=== PATIENT | female | born 1965 | race Caucasian/White ===

== ENCOUNTER → 2020-05-17 13:40 | Outpatient (CLI) | payer OTHER, SELFPAY ==
--- NOTE | ~2020-05-17 | US_ITS ---
EXAMINATION: US pelvic complete w TV EXAM DATE: 05/17/2020 14:20 INDICATION: Abnormal uterine and vaginal bleeding, abdominal pain. TECHNIQUE: Pelvic transabdominal and transvaginal sonogram was performed. There are multiple graysca le and Doppler images available for interpretation. There is no prior study for comparison. FINDINGS: Uterus measures 7.4 x 4.1 x 5.7 cm, and is morphologically normal. Endometrial stripe shonda sures 4 mm, within normal limits. There is no free pelvic fluid. Right adnexa: The ovary is not identified. There is no adnexal mass. Left adnexa: The ovary measures 1.8 x 2.6 x 1.8 cm and is morphologically normal. Ovarian vascular fl ow confirmed. IMPRESSION: 1. Unremarkable pelvic ultrasound exam. Reviewed, dictated and finalized at location A. 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
== END ==
PROVIDERS: Visit Provider Obstetrics & Gynecology Gynecology
DX: N93.9 Abnormal uterine and vaginal bleeding, unspecified (principal); R10.9 Unspecified abdominal pain
CPT/HCPCS: 76830; 76856

== ENCOUNTER → 2020-05-23 15:41 | Outpatient (CLI) | payer OTHER, SELFPAY ==
--- NOTE | ~2020-05-23 | MM_ITS ---
EXAMINATION: MM screening [facility] w liliana HISTORY: Screening TECHNIQUE: Craniocaudal and mediolateral oblique 3-D tomosynthesis images were obtained and synthetic 2-D images were generated. CAD analysis was submitted and interpreted. COMPARISON: Comparison to multiple prior studies sequentially, with oldest reviewed study dated 10/08. BREAST PARENCHYMAL COMPOSITION: There are scattered areas of fibroglandular density. FINDINGS: There is no evidence of suspicious mass, calcification, or architectural distortion to sugg est malignancy in either breast. There has been no suspicious interval change. IMPRESSION: 1. No mammographic evidence of malignancy. 2. Recommend routine screening mammography in one year. BI-RADS Category 1: Negative Reviewed, dictated and finalized at location A. 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
== END ==
PROVIDERS: Visit Provider Obstetrics & Gynecology
DX: Z12.31 Encounter for screening mammogram for malignant neoplasm of breast (principal)
CPT/HCPCS: 77063; 77067

== ENCOUNTER → 2020-07-22 17:26 | Outpatient (CLI) | payer OTHER, SELFPAY ==
--- NOTE | ~2020-07-22 | DEXA_ITS ---
Bone Density Report Name: Aislinn Miles Age: 55 Sex: Female Ethnicity: White Date of : 1965 Indication: postmenopausal; screening for osteoporosis; Referring Provider: Bre Mitchell Study: Bone densitometry was performed. Exam Date: July 22, 2020 Accession number: [id number] Bone Density: Region BMD T-score Z-score Classification AP Spine (L1-L4) 1.114 0.6 1.8 Normal Femoral Neck (Left) 0.839 -0.1 1.0 Normal Total Hip (Left) 1.087 1.2 1.9 Normal Femoral Neck (Right) 0.751 -0.9 0.2 Normal Total Hip (Right) 1.062 1.0 1.7 Normal Total Hip Mean 1.075 1.1 1.8 Normal World Health Organization criteria for BMD impression classify patients as: Normal (T-score at or above -1.0), Osteopenia (T-score between -1.0 and -2.5), or Osteoporosis (T-score at or below -2.5). 10-year Fracture Risk: FRAX not reported because: All T-scores for Spine Total, Hip Total, Femoral Neck at or above -1.0 Clinical Information Provided by Patient: Has used the following medications: HRT (i.e. estrogen/hormone therapy), Vitamin D Patient maximum height was 64.0 Menopause Age: 52 No regular weight bearing exercise Drinks caffeinated beverages Onset of menses at age 11 Number of children 2 Impression: The patient has normal bone mass. Discussion: BONE DENSITY IS ABOVE THE MINIMUM DESIRABLE LEVEL AT ALL SKELETAL SITES TESTED. This patient?s bone mineral density is above the minimum desirable level (T-score -1.0 or better) at all sites measured. The patient should follow a healthful lifestyle (good nutrition with adequate calcium and vitamin D, and appropriate weight-bearing exercise). Follow-Up: Consider repeating this study in 5 years or sooner if there is some new clinical indication. Reported by: [facility] on 07/22/2020 6:06:00 PM. Reviewed, dictated and finalized at location AErnesto [facility]
== END ==
PROVIDERS: PCP Obstetrics & Gynecology Gynecology; Visit Provider Nurse Practitioner Family
DX: Z78.0 Asymptomatic menopausal state (principal)
CPT/HCPCS: 77080

== ENCOUNTER → 2020-09-09 00:12 | Outpatient (CLI) | payer OTHER, SELFPAY ==
[2020-09-09 19:36] LABS: SARS-CoV-2 RNA PCR Negative
== END ==
PROVIDERS: PCP Family Medicine; Visit Provider Internal Medicine Gastroenterology
DX: R68.89 Other general symptoms and signs (principal); Z20.822 Contact with and (suspected) exposure to COVID-19
CPT/HCPCS: C9803; U0003; U0005

== ENCOUNTER 2020-09-12 01:25 | Day surgery (SDC) | payer OTHER, SELFPAY ==
[2020-09-06 10:49] VITALS: BMI 45.3
[2020-09-12 06:29] VITALS: BP 163/84; PULSE 81; RESP 16; TEMP 36.1; O2SAT 99; BMI 44.9
[2020-09-12] MEDS: LACTATED RINGERS 1,000 ML 150 ML IV CONT ×2 (06:40→08:09)
[2020-09-12 06:42] LABS: Glucose Point of Care 194 (65-105)
--- NOTE | 2020-09-12 07:11 | WPDANESEPP ---
Anes - Eval Pre Procedure Procedure: Operation Date: 09/12/20 07:30 Proposed Procedures p Colonoscopy - Damian Danielle MD Date/Time: 09/12/20 07:11 Pre Op Diagnosis: positive cologuard Patient Data Age: 55 Gender: F Height: 1.63 m Weight: 118.6 kg Last Vital Signs Temp 36.1 C L 09/12/20 06:29 Pulse 81 09/12/20 06:29 Resp 16 09/12/20 06:29 BP 163/84 H 09/12/20 06:29 Pulse Ox 99 09/12/20 06:29 Allergies Allergy/AdvReac Type Severity Reaction Status Date / Time Sulfa (Sulfonamide Allergy Unknown Other Verified 09/12/20 06:25 Antibiotics) Home Medications Medication Instructions Recorded Confirmed Type blood-glucose meter #1 each 03/02/19 09/12/20 Rx fluticasone propionate 50 1 spray NASAL DAILY #36.4 ml 03/02/19 09/12/20 Rx mcg/actuation nasal spray,suspension lancets 30 gauge #25 each 03/02/19 09/12/20 Rx blood sugar diagnostic #100 each 12/18/19 09/12/20 Rx prasterone (dhea) 6.5 mg vaginal 1 insert VAGINAL DAILY #90 ea 02/05/20 09/12/20 Rx insert allopurinol 300 mg tablet 300 mg PO DAILY #90 tablet 05/26/20 09/12/20 Rx apple cider vinegar 300 mg tablet 300 mg PO DAILY PRN 05/26/20 09/12/20 History venlafaxine 75 mg tablet,extended 75 mg PO DAILY #90 tablet 05/26/20 09/12/20 Rx release 24 hr pioglitazone 45 mg tablet See Rx Instructions .ROUTE 05/30/20 09/12/20 Rx .COMPLEX #90 tablet atorvastatin 40 mg tablet See Rx Instructions .ROUTE 06/13/20 09/12/20 Rx .COMPLEX #90 tablet metformin 500 mg tablet 1,000 mg PO BID #360 tablet 06/13/20 09/12/20 Rx olmesartan 40 mg tablet See Rx Instructions .ROUTE 06/13/20 09/12/20 Rx .COMPLEX #90 tablet repaglinide 1 mg tablet See Rx Instructions .ROUTE 06/13/20 09/12/20 Rx .COMPLEX #270 tablet sod picosulf 10 mg-magnes 3.5 160 ml PO BID #160 ml 07/19/20 09/12/20 Rx gram-citric 12 gram/160 mL oral solution ketorolac 10 mg tablet 10 mg PO Q6H PRN #30 tablet 08/08/20 09/12/20 Rx Juice Plus 2 cap PO DAILY 09/06/20 09/12/20 History amlodipine 10 mg PO DAILY 09/06/20 09/12/20 History cholecalciferol (vitamin D3) 125 mcg PO DAILY 09/06/20 09/12/20 History coenzyme Q10 [Co Q-10] 200 mg PO DAILY 09/06/20 09/12/20 History estradiol 1.25 mg PO DAILY 09/06/20 09/12/20 History melatonin 3 mg PO HS PRN 09/06/20 09/12/20 History progesterone micronized 300 mg PO HS 09/06/20 09/12/20 History tamsulosin [Flomax] 0.4 mg PO DAILY PRN 09/06/20 09/12/20 History testosterone 1 pump TOPICAL HS 09/06/20 09/12/20 History testosterone undecanoate 40 mg PO HS 09/06/20 09/12/20 History thyroid 1 mg PO DAILY 09/06/20 09/12/20 History valacyclovir [Valtrex] 500 mg PO Q12H PRN 09/06/20 09/12/20 History Laboratory Tests 09/12/20 06:34 POC Capillary Glucose 194 mg/dl H mg/dl (65-105) Patient hx anesthesia problems: none Family hx anesthesia problems: none PMFSH Past Medical History Medical History Benign breast neoplasm 1984 Essential (primary) hypertension Hyperlipidemia, unspecified Hypothyroidism, unspecified Post depression 1996 Type 2 diabetes mellitus without complication Vaginal delivery 1996 Full term female 6lbs 14oz 2001 Full term male 7lbs 2oz Family History Family History Grandparent Family history of emphysema Family history of rheumatic fever Diabetes mellitus Mother Hypertension Family history of coronary artery disease Cerebrovascular accident Father Family history of coronary artery disease Cerebrovascular accident Hyperlipidemia Other Breast cancer Social History Social History Smoking status: Never smoker Alcohol intake: former Substance use: never Living arrangements: with family Spiritual care concerns: No Exam Day of Procedure 09/12/20 07:11
--- NOTE | 2020-09-12 07:26 | PM.HPGS ---
History of Present Illness History of Present Illness Consent: Risks, benefits, and alternatives have been discussed and questions answered. Patient agrees to proceed with procedure. Chief complaint: positive cologuard Narrative: Aislinn Miles is a 55 year old female here for first colonoscopy, has + cologuard Review of Systems Constitutional: Constitutional: Denies headache(s) and Denies weakness Eyes: Eyes: Denies blurry vision ENT: Reports Normal hearing present, Denies headache(s) and Denies neck pain Cardiovascular: Cardiovascular: Denies chest pain and Denies dyspnea Respiratory: Respiratory: Denies dyspnea Gastrointestinal: Gastrointestinal: Reports no additional gastrointestinal complaints Genitourinary: Genitourinary: Denies dysuria Musculoskeletal: Musculoskeletal: Denies neck pain Integumentary/Breasts: Skin/Breast: Denies dry skin Neurologic: Reports Normal hearing present, Denies headache(s) and Denies weakness Psychiatric: Psychiatric: Denies anxiety Endocrine: Endocrine: Denies change in body appearance Hematologic/Lymphatic: Hematologic/Lymphatic: Denies easy bleeding Allergic/Immunologic: Allergic/Immunologic: Denies urticaria PMFSH Past Medical History Medical History Benign breast neoplasm 1984 Essential (primary) hypertension Hyperlipidemia, unspecified Hypothyroidism, unspecified Post depression 1996 Type 2 diabetes mellitus without complication Vaginal delivery 1996 Full term female 6lbs 14oz 2001 Full term male 7lbs 2oz Family History Family History Grandparent Family history of emphysema Family history of rheumatic fever Diabetes mellitus Mother Hypertension Family history of coronary artery disease Cerebrovascular accident Father Family history of coronary artery disease Cerebrovascular accident Hyperlipidemia Other Breast cancer Social History Social History Smoking status: Never smoker Alcohol intake: former Substance use: never Living arrangements: with family Spiritual care concerns: No Meds Home Medications and Allergies Home Medications Medication Instructions Recorded Confirmed Type blood-glucose meter #1 each 03/02/19 09/12/20 Rx fluticasone propionate 50 1 spray NASAL DAILY #36.4 ml 03/02/19 09/12/20 Rx mcg/actuation nasal spray,suspension lancets 30 gauge #25 each 03/02/19 09/12/20 Rx blood sugar diagnostic #100 each 12/18/19 09/12/20 Rx prasterone (dhea) 6.5 mg vaginal 1 insert VAGINAL DAILY #90 ea 02/05/20 09/12/20 Rx insert allopurinol 300 mg tablet 300 mg PO DAILY #90 tablet 05/26/20 09/12/20 Rx apple cider vinegar 300 mg tablet 300 mg PO DAILY PRN 05/26/20 09/12/20 History venlafaxine 75 mg tablet,extended 75 mg PO DAILY #90 tablet 05/26/20 09/12/20 Rx release 24 hr pioglitazone 45 mg tablet See Rx Instructions .ROUTE 05/30/20 09/12/20 Rx .COMPLEX #90 tablet atorvastatin 40 mg tablet See Rx Instructions .ROUTE 06/13/20 09/12/20 Rx .COMPLEX #90 tablet metformin 500 mg tablet 1,000 mg PO BID #360 tablet 06/13/20 09/12/20 Rx olmesartan 40 mg tablet See Rx Instructions .ROUTE 06/13/20 09/12/20 Rx .COMPLEX #90 tablet repaglinide 1 mg tablet See Rx Instructions .ROUTE 06/13/20 09/12/20 Rx .COMPLEX #270 tablet sod picosulf 10 mg-magnes 3.5 160 ml PO BID #160 ml 07/19/20 09/12/20 Rx gram-citric 12 gram/160 mL oral solution ketorolac 10 mg tablet 10 mg PO Q6H PRN #30 tablet 08/08/20 09/12/20 Rx Juice Plus 2 cap PO DAILY 09/06/20 09/12/20 History amlodipine 10 mg PO DAILY 09/06/20 09/12/20 History cholecalciferol (vitamin D3) 125 mcg PO DAILY 09/06/20 09/12/20 History coenzyme Q10 [Co Q-10] 200 mg PO DAILY 09/06/20 09/12/20 History estradiol 1.25 mg PO DAILY 09/06/20 09/12/20 History melatonin 3 mg PO HS PRN 09/06/2008/27
[2020-09-12 07:58] VITALS: BP 156/72; PULSE 76; RESP 31; O2SAT 98
[2020-09-12 08:08] VITALS: BP 97/74; PULSE 75; RESP 26; O2SAT 98
[2020-09-12 08:18] VITALS: BP 125/74; PULSE 67; RESP 18; O2SAT 95
== END 2020-09-12 08:32 | disposition home or self-care (01) ==
PROVIDERS: PCP Nurse Practitioner Family; Visit Provider Internal Medicine Gastroenterology
PROC: 0DJD8ZZ Inspection of Lower Intestinal Tract, Via Natural or Artificial Opening Endoscopic (ICD-10-PCS; CPT 45378; principal; 2020-09-12 07:30)
DX: R19.5 Other fecal abnormalities (principal); D12.8 Benign neoplasm of rectum; D12.0 Benign neoplasm of cecum; I10 Essential (primary) hypertension; E78.5 Hyperlipidemia, unspecified; E03.9 Hypothyroidism, unspecified; E11.9 Type 2 diabetes mellitus without complications; K64.4 Residual hemorrhoidal skin tags
CPT/HCPCS: 45385; 45380; 82948; 88305; J2704; J7120

== ENCOUNTER 2021-05-02 10:32 | Emergency (ER) | payer OTHER, SELFPAY ==
[2021-05-02 10:37] VITALS: BP 144/72; PULSE 101; RESP 16; TEMP 36.8; O2SAT 97
--- NOTE | 2021-05-02 10:53 | ED.URI ---
HPI - URI/Sore Throat General Chief Complaint: Upper Respiratory Infection Stated Complaint: cough Time Seen by Provider: 05/02/21 11:28 Source: patient and RN notes reviewed Mode of arrival: ambulatory Limitations: no limitations History of Present Illness HPI Narrative: 55-year-old female presents with concern for 2-day history of fever, chills, body aches, decreased appetite, cough, sinus drainage. She reports she was vaccinated for Covid last June. She reports she has been taking [id number] medications without relief of symptoms. MD elicited complaint: cough and other (Body aches) Related Data Home Medications Medication Instructions Recorded Confirmed apple cider vinegar 300 mg tablet 300 mg PO DAILY PRN 05/26/20 02/10/21 Juice Plus 2 cap PO DAILY 09/06/20 02/10/21 cholecalciferol (vitamin D3) 125 mcg PO DAILY 09/06/20 02/10/21 coenzyme Q10 [Co Q-10] 200 mg PO DAILY 09/06/20 02/10/21 estradiol 1.25 mg PO DAILY 09/06/20 02/10/21 testosterone 1 pump TOPICAL HS 09/06/20 02/10/21 melatonin 3 mg capsule 2 mg PO HS PRN cap 01/26/21 02/10/21 progesterone micronized 200 mg 400 mg PO HS cap 01/26/21 02/10/21 capsule olmesartan 40 mg tablet 40 mg PO DAILY 02/10/21 02/10/21 prasterone (dhea) 25 mg capsule 5 mg PO DAILY cap 02/10/21 02/10/21 thyroid PO 02/10/21 02/10/21 Allergies Allergy/AdvReac Type Severity Reaction Status Date / Time Sulfa (Sulfonamide Allergy Unknown Other Verified 02/10/21 10:00 Antibiotics) Review of Systems Review of Systems: CONSTITUTIONAL: Reports malaise, fatigue, fever. Denies chills, sweats EYES: Denies visual changes, redness, or discharge. ENT: Reports rhinorrhea, congestion, otalgia and sore throat. CARDIOVASCULAR: Denies chest pain, palpitations, or edema. RESPIRATORY: Reports cough. Denies dyspnea. GASTROINTESTINAL: Denies abdominal pain, nausea, vomiting, diarrhea. Reports decreased appetite SKIN: Denies rash or itching. MUSCULOSKELETAL: Reports myalgia. NEUROLOGIC: Reports headache. All systems reviewed & are unremarkable except as noted in HPI and below PMFSH Past Medical History Medical History (Updated 05/02/21 @ 11:58 by Norah Muñiz NP) Benign breast neoplasm 1984 Essential (primary) hypertension Hyperlipidemia, unspecified Hypothyroidism, unspecified Post depression 1996 Type 2 diabetes mellitus without complication Vaginal delivery x2 Surgical History Surgical History History of breast surgery left breast lump removal History of oral surgery Family History Family History Grandparent Family history of emphysema Family history of rheumatic fever Diabetes mellitus Mother Hypertension Family history of coronary artery disease Cerebrovascular accident Father Family history of coronary artery disease Cerebrovascular accident Hyperlipidemia Other Breast cancer Social History Social History Smoking status: Never smoker Alcohol intake: current Alcohol use details: rare Substance use: never Spiritual care concerns: No Comments At time of signature, agree with nursing past medical, surgical, social and family history. There is no relevant family history pertinent to the presenting complaint Exam Narrative: GENERAL: Nontoxic-appearing, well-nourished, and in no acute distress. HEAD: Normocephalic EYES: PERRLA, conjunctivae clear ENT: Nares clear, green-tinged discharge. Mucous membranes moist. TM pearly ugarte with dull light reflex bilaterally; no tragal tenderness. Oropharynx not erythematous without lesions. Tonsils not enlarged and without exudate, no drooling, no hoarseness, no trismus, uvula midline. NECK: Supple. No lymphadenopathy CHEST: Clear to auscultation, breath sounds equal. No wheezing, rhonchi, rales, or stridor.
== END 2021-05-02 12:03 | disposition home or self-care (01) ==
PROVIDERS: Emergency Provider Nurse Practitioner
DX: B34.9 Viral infection, unspecified (principal); Z20.822 Contact with and (suspected) exposure to COVID-19; I10 Essential (primary) hypertension; E78.5 Hyperlipidemia, unspecified; E03.9 Hypothyroidism, unspecified; E11.9 Type 2 diabetes mellitus without complications
CPT/HCPCS: 87426; 87804; 99213; C9803; G0463

== ENCOUNTER 2021-06-04 14:31 | Emergency (ER) | payer OTHER, SELFPAY ==
[2021-06-04 14:38] VITALS: BP 142/56; PULSE 108; RESP 22; TEMP 36.4; O2SAT 100
--- NOTE | 2021-06-04 15:54 | PC.NURSE ---
PT STATES I JUST CAN'T WAIT ANY LONGER SO PLEASE CALL MY TO COME PICK ME UP I ADVISED HER THAT WE HAVE A COUPLE OF ROOMS OPENING UP D/T ADMISSIONS AND DISCHARGES BUT SHE DECLINED TO WAIT ANY LONGER. PT AMBULATED WITH A BRISK, STEADY GAIT FROM THE ED,
== END 2021-06-04 15:54 | disposition left against medical advice (07) ==
DX: R10.9 Unspecified abdominal pain (principal)
CPT/HCPCS: 99199

== ENCOUNTER → 2021-08-31 11:22 | Outpatient (CLI) | payer OTHER, SELFPAY ==
--- NOTE | ~2021-08-31 | MM_ITS ---
EXAMINATION: MM screening [facility] BI w liliana HISTORY: Screening mammogram TECHNIQUE: Craniocaudal and mediolateral oblique 3-D tomosynthesis images were obtained and synthetic 2-D images were generated. CAD analysis was submitted and interpreted. COMPARISON: 05/23/2020, 03/16/2019, 12/09/2017 bilateral screening mammogram examinations BREAST PARENCHYMAL COMPOSITION: There are scattered areas of fibroglandular density. FINDINGS: Occasional stable benign-appearing circumscribed opacities including probable benign intram ammary lymph node in the outer mid right breast, stable circumscribed low-density benign-appearing ap proximately 6 mm density in the central right breast lateral to the mid sagittal plane. There is no e vidence of suspicious mass, calcification, or architectural distortion to suggest malignancy in eithe r breast. There has been no suspicious interval change. IMPRESSION: 1. No mammographic evidence of malignancy. 2. Recommend routine screening mammography in one year. BI-RADS Category 2: Benign finding(s). Reviewed, dictated and finalized at location A.
== END ==
PROVIDERS: PCP Nurse Practitioner Family; Visit Provider Nurse Practitioner Family
DX: Z12.31 Encounter for screening mammogram for malignant neoplasm of breast (principal)
CPT/HCPCS: 77063; 77067

== ENCOUNTER → 2022-09-01 10:46 | Outpatient (CLI) | payer OTHER, SELFPAY ==
--- NOTE | ~2022-09-01 | MM_ITS ---
EXAMINATION: MM screening [facility] BI w liliana HISTORY: Screening mammogram TECHNIQUE: Craniocaudal and mediolateral oblique 3-D tomosynthesis images were obtained and synthetic 2-D images were generated. CAD analysis was submitted and interpreted. COMPARISON: 08/31/2021, 05/23/2020, 03/16/2019 BREAST PARENCHYMAL COMPOSITION: There are scattered areas of fibroglandular density. FINDINGS: No suspicious mass, calcification, or architectural distortion are identified in either ramy ast to suggest malignancy. There has been no suspicious interval change. IMPRESSION: 1. No mammographic evidence of malignancy. 2. Recommend routine screening mammography in one year. BI-RADS Category 1: Negative Reviewed, dictated and finalized at location A.
== END ==
PROVIDERS: PCP Obstetrics & Gynecology Gynecology; Visit Provider Nurse Practitioner Family
DX: Z12.31 Encounter for screening mammogram for malignant neoplasm of breast (principal)
CPT/HCPCS: 77063; 77067

== ENCOUNTER 2023-10-21 14:57 | Outpatient (CLI) | payer OTHER, SELFPAY ==
--- NOTE | ~2023-10-21 | MM_ITS ---
EXAMINATION: MM screening [facility] BI w liliana HISTORY: Screening mammogram TECHNIQUE: Craniocaudal and mediolateral oblique 3-D tomosynthesis images were obtained and synthetic 2-D images were generated. CAD analysis was submitted and interpreted. COMPARISON: 09/01/2022, 08/31/2021, 05/23/2020 BREAST PARENCHYMAL COMPOSITION:Not Dense. There are scattered areas of fibroglandular density. FINDINGS: No suspicious mass, calcification, or architectural distortion are identified in either ramy ast to suggest malignancy. There has been no suspicious interval change. IMPRESSION: No mammographic evidence of malignancy. Recommend routine screening mammography in one year. BI-RADS Category 1: Negative Reviewed, dictated and finalized at location .
== END 2023-10-21 14:58 ==
LOC: MICIMG 14:59
PROVIDERS: PCP Family Medicine; Visit Provider Obstetrics & Gynecology Gynecology
DX: Z12.31 Encounter for screening mammogram for malignant neoplasm of breast (principal)
CPT/HCPCS: 77063; 77067

== ENCOUNTER 2023-11-29 13:39 | Emergency (ER) | payer OTHER, SELFPAY ==
--- NOTE | ~2023-11-29 | XR_ITS ---
EXAMINATION: XR chest 2V DATE: 11/29/2023 14:44 INDICATION: Cough. Shortness of breath. TECHNIQUE: Frontal and lateral views of the chest were obtained. COMPARISON: None. FINDINGS: There is no pneumonia, pleural effusion, or pneumothorax. The heart size is normal. IMPRESSION: 1. No acute cardiopulmonary disease. Reviewed, dictated and finalized at location A.
--- NOTE | 2023-11-29 14:13 | ED.URI ---
HPI - URI/Sore Throat General Chief Complaint: Upper Respiratory Infection Stated Complaint: CHEST PAIN/CONGESTION/CLAMMY S/P COVID Time Seen by Provider: 11/29/23 14:35 Source: patient Mode of arrival: ambulatory Limitations: no limitations History of Present Illness HPI Narrative: Aislinn is a 58-year-old female presents to clinic today with complaints of chest pain with cough, shortness of breath, headache, and nasal congestion x 1-2 days. She tested positive for COVID last Saturday and her symptoms improved but came back. She denies any fevers, wheezing, nausea, vomiting, abdominal pain, or diarrhea. MD elicited complaint: sore throat and nasal congestion Related Data Home Medications Medication Instructions Recorded Confirmed testosterone 30 mg/actuation (1.5 1 pump topical HS 09/06/20 11/29/23 mL) transderm solution metered pump melatonin 3 mg capsule 2 mg PO HS PRN Insomnia 01/26/21 11/29/23 estradiol 1.5 mg tablet 2.4 mg PO DAILY 06/22/21 11/29/23 progesterone micronized 200 mg 500 mg PO HS 06/22/21 11/29/23 capsule cholecalciferol (vitamin D3) 125 250 mcg PO DAILY 06/18/23 11/29/23 mcg (5,000 unit) capsule thyroid 195 mg PO DAILY 06/18/23 11/29/23 Allergies Allergy/AdvReac Type Severity Reaction Status Date / Time Sulfa (Sulfonamide Allergy Unknown Other Verified 11/29/23 14:24 Antibiotics) Review of Systems Review of Systems: Pertinent positives per HPI. Patient denies any fever, chills, rash, visual changes, dizziness, palpitations, nausea, vomiting, diarrhea, constipation, abdominal pain, or any urinary issues. [facility] Past Medical History Medical History Anxiety and depression Benign breast neoplasm 1984 Essential (primary) hypertension GERD (gastroesophageal reflux disease) History of renal calculi Hyperlipidemia, unspecified Hypothyroidism, unspecified Kidney stones Post depression 1996 Type 2 diabetes mellitus without complication Vaginal delivery x2 Surgical History Surgical History History of breast surgery (~1984) left breast lump removal History of cystoscopy (~2020) for renal stones History of tooth extraction (~2021) History of wisdom tooth extraction Family History Family History Grandparent Family history of emphysema Family history of rheumatic fever Diabetes mellitus Mother Hypertension Family history of coronary artery disease Cerebrovascular accident Father Family history of coronary artery disease Cerebrovascular accident Hyperlipidemia Other Breast cancer Social History Social History Smoking status: Never smoker Alcohol intake: current Alcohol use details: rare Substance use: never Lack of Transportation: No Lack of Food: Never True Current Housing: I Have Housing Concerned About Future Housing: No Difficulty Paying Gas/Electric Bills: No Difficulty Paying for Meds: No Currently Unemployed: No Education: Associate Degree Difficulty w/ Childcare or Family Care: No Living arrangements: with family Spiritual care concerns: No Comments At the time of my signature, I reviewed and agree with the nursing past medical, surgical, social, and family history. There is no relevant family history pertinent to the patient complaint. Exam Narrative: General: Well-developed, well nourished, in no apparent distress Head: Normocephalic, atraumatic Eyes: Pupils equally round and reactive to light bilaterally, EOM intact, sclera and conjunctive clear, no discharge, lids normal Ears: TMs intact and clear, ear canals clear, no drainage, grossly hearing normal. Nose: Nares patent, no discharge, no inflammation, no sinus tenderness. Mouth: Oral pharynx without lesions or
[2023-11-29 14:23] VITALS: BP 138/94; PULSE 87; RESP 16; TEMP 36.6; O2SAT 100
[2023-11-29 14:29] VITALS: BP 138/94; PULSE 87; RESP 16; TEMP 36.6; O2SAT 100
== END 2023-11-29 15:11 | disposition home or self-care (01) ==
PROVIDERS: Emergency Provider Nurse Practitioner Family; PCP Family Medicine
DX: J06.9 Acute upper respiratory infection, unspecified (principal); I10 Essential (primary) hypertension; K21.9 Gastro-esophageal reflux disease without esophagitis; E78.5 Hyperlipidemia, unspecified; E03.9 Hypothyroidism, unspecified; E11.9 Type 2 diabetes mellitus without complications; Z86.16 Personal history of COVID-19
CPT/HCPCS: 71046; 99213; G0463

== ENCOUNTER 2024-07-20 06:06 | Day surgery (SDC) | payer OTHER, SELFPAY ==
[2024-01-17 13:29] VITALS: BMI 37.6
[2024-03-16 11:16] VITALS: BMI 36.7
--- OUTSIDE RECORDS SUMMARY | 2024-07-20 06:19 | XMS_ITS | Clinical Summary ---
Author Organization [facility] Address [address] [place] [place] [address] Care Team Providers Care Supervisor Sewer System Name Role Phone Monse Mitchellh Clarissa BERTRAND-SENIOR ELECTRICAL CONTROLS ENGINEER Primary Care Provider Source Comments [facility],non-owned Affiliates and Associated Physician Practices is amultiple site organization consisting of ambulatory clinics and hospital sitesin [place], [place], [place] and [place]. This disclosure is being madepursuant to the Care Everywhere program and may not contain all information available regarding this patient. Last updated 18.[facility] Allergies Active Allergy Reactions Criticality Noted Date Comments Sulfa Drugs Anaphylaxis,Rash High 03/19/2019 Medications * Be aware that medications may not be up to date on this document. Alwaysverify current medications with the patient. Medication Sig Dispensed Refills Start Date End Date Status METFORMIN HCL PO Active atorvastatin (LIPITOR) 40 MG tablet Take 40 mg by mouth at bedtime Active AMLODIPINE BESYLATE PO Active OLMESARTAN MEDOXOMIL PO Active PIOGLITAZONE HCL PO Activ e Spacer/Aero-Holding Chambers (AEROCHAMBER) Inhale by mouth as directed 1 Each 03/19/2019 Active albuterol HFA (PROVENTIL;VENTOLIN; PROAIR) 108 (90 Base) MCG/ACT inhaler Inhale 2 puffs by mouth every 6 hours as needed 1 Inhaler 03/19/2019 Active benzonatate (TESSALON) 200 MG capsule Take 1 capsule by mouth 3 times daily as needed for Cough 30 capsule 03/19/2019 Active Social History Tobacco Use Types Packs/Day Years Used Date Smoking Tobacco: Passive Smo ke Exposure - Never Smoker Smokeless Tobacco: Never Sex and Gender Information Value Date Recorded Sex Assigned at Not on file Gender Identity Not on file Sexual Orientation Not on file Last Filed Vital Signs Vital Sign Reading Time Taken Comments Blood Pressure 104/66 03/19/2019 10:57 AM INSURANCE AGENCY MANAGER Pulse 91 03/19/2019 10:57 AM INSURANCE AGENCY MANAGER Temperature 36.7 C (98.1 F) 03/19/2019 10:57 AM INSURANCE AGENCY MANAGER Respiratory Rate 16 03/19/2019 10:57 AM INSURANCE AGENCY MANAGER Oxygen Saturation 96% 03/19/2019 10:57 AM INSURANCE AGENCY MANAGER Inhaled Oxygen Concentration - - Weight 113.4 kg (250 lb) 03/19/2019 10:57 AM INSURANCE AGENCY MANAGER Height 162.6 cm (5' 4 ) 03/19/2019 10:57 AM INSURANCE AGENCY MANAGER Body Mass Index 42.91 03/19/2019 10:57 AM INSURANCE AGENCY MANAGER Plan of Treatment Health Maintenance Due Date Last Done Comments COLOGUARD (AGES 45-75) - COL ON CA SCREENING 1964 COLON MONITORING 1964 COLONOSCOPY - COLON CA SCREENING 1964 CT COLONOGRAPHY - COLON CA SCREENING 1964 Colorectal Cancer Screening 1964 FIT - COLON CA SCREENING 1964 FLEX SIG - COLON CA SCREENING 1964 MAMMOGRAM 1964 PAP SMEAR 1964 HIV SCREENING 1979 HEPATITIS C SCREENING 05/03/1982 DTAP/TDAP/TD VACCINES (1 - Tdap) 1983 PNEUMOCOCCAL VACCINE 50+ (1 of 1 - PCV) 2014 ZOSTER VACCINE (1 of 2) 2014 SCREENING FOR DIABETES 03/19/2019 COVID-19 VACCINE ( - 2023-2 5 season) 2023 INFLUENZA VACCINE (#1) 2023 DEPRESSION SCREENING 04/29/2024 Respiratory Syncytial Virus (RSV) Vaccine Pt: or over 60 yrs (1 - 1-dose 75+ series) 2039 HEPATITIS B VACCINE Aged Out No longe r eligible based on patient's age to complete this topic HIB VACCINE Aged Out No longer eligi ble based on patient's age to complete this topic HPV VACCINE Aged Out No longer eligi ble based on patient's age to complete this topic MENINGOCOCCAL (Group B) VACC INE SHARED DECISION-MAKING Aged Out No longer eligibl e based on patient's age to complete this topic MENINGOCOCCAL GROUPS A/C/Y/W VACCINE Aged Out No longer eligible b ased on patient's age to complete this topic PNEUMOCOCCAL VACCINE Aged Out No long er eligible based on patient's age to complete this topic Care Teams Supervisor Sewer System Relationship Specialty Start Date End Date Bre Mitchell, FLIGHT CONTROL SPECIALIST-SENIOR ELECTRICAL CONTROLS ENGINEER [address] [place] [address] PCP - General 11/14/20
--- OUTSIDE RECORDS SUMMARY | 2024-07-20 06:19 | XMS_ITS | Referral Summary ---
Author Organization [facility] Virtual Care Address [facility] [place] [address] Phone Care Team Providers Care Pharmacist Hospital Name Role Phone Bre Mitchell NP Primary Care Provider [phone] Juan Morales MD Unavailable [phone] Allergies Active Allergy Reactions Criticality Noted Date Comments Sulfa (Sulfonamide Antibiotics) Anaphylaxis High 10/2021 Medications atorvastatin (LIPITOR) 40 mg tablet Take 1 tablet (40 mg total) by mouth nightly Active venlafaxine (EFFEXOR) 75 mg tablet Take 75 mg by mouth nightly Active melatonin tablet Take 2 tablets (2 mg total) by mouth nightly Active estradioL (ESTRACE) 2 mg tablet Take 2.4 mg by mouth daily Lactose Free. Active pioglitazone (ACTOS) 15 mg tabletIndicatio ns:type 2 diabetes mellitus Take 3 tablets (45 mg total) by mouth daily Active amLODIPine (NORVASC) 10 mg tablet Take 1 tablet (10 mg total) by mouth daily Active olmesartan (BENICAR) 40 mg tablet Take 1 tablet (40 mg total) by mouth daily Active THYROID, BULK, MISC Take 1 each by mouth daily Thyroid by [facility] and the dose is 3.25 grain Active metFORMIN (GLUCOPHAGE) 500 mg tablet Take 2 tablets (1,000 mg total) by mouth 2 (two) times a day with meals Active cetirizine (ZyrTEC) 10 mg tablet Take 10 mg by mouth daily as needed Active fluticasone propionate (FLONASE) 50 mcg/actuation nasal spray Administer 1 spray into each nostril daily as needed for rhinitis Active cholecalciferol (VITAMIN D-3) 5,000 unit capsule Take 1 capsule (5,000 Units total) by mouth daily Active progesterone (PROMETRIUM) 200 mg capsule Take 500 mg by mouth daily Takes a 200mg tab and a 300mg tab Active ketorolac (TORADOL) 10 mg tablet Take 1 tablet (10 mg total) by mouth every 6 (six) hours as needed for pain 20 tablet 2 Active Additional Information Patient not taking.Reported on 04/18/2022 phenazopyridine (Pyridium) 100 mg tablet Take 1 tablet (100 mg total) by mouth 3 (three) times a day as needed for urinary pain 20 tablet 2 Active Additional Information Patient not taking.Reported on 12/05/2022 fenofibrate (TRIGLIDE) 160 mg tablet Take 1 tablet (160 mg total) by mouth daily 3 Active Mounjaro 2.5 mg/0.5 mL pen injector ADMINISTER 2.5MG UNDER THE SKIN WEEKLY FOR 4 WEEKS 3 Active Jardiance 10 mg tablet Take 1 tablet (10 mg total) by mouth every morning 4 Active Active Problems Problem Noted Date Diagnosed Date Kidney stone 06/06/2021 Assessment & Plan (07/19/2022 4:31 PM CDT): -Based on [facility] overall recommended dietary changes. -Last CT did note punctate stone in left side. Renal US done recently showing no stones. -No recent symptoms of stone passage. PLAN: -Discussed [facility]ol[facility] results. Overall, will need to increase fluid intake, lower sodium levels, and lower oxalate levels. She was only taking 1 potassium citrate tablet at the time of Litholink so will hold off on restarting. -Follow up with 6 months with renal US and repeat Litholink prior to appointment. [facility]olink order faxed. Assessment & Plan (01/15/2022 4:10 PM CDT): -Discussed CT findings with patient. She is undecided whether or not to intervene on stones vs surgical intervention. She does not want to do any surgical intervention prior to [place] time so would at least like to wait until after March. -She has been out of potassium citrate for about 2 weeks. We planned to get BMP but since she has been off of these meds, will wait until she restarts and plan for BMP a couple weeks after restarting. -Discussed details of Litholink results and advised on changes she can make to reduce stone formation. PLAN: - Patient would like to observe stones at this time. She will contact us if she decides on surgical intervention to remove stones. The patient will report intensification of symptoms to my office or go to the emergency room for intractable pain, associated fever, chills, nausea, vomiting or hematuria. -Restart potassium citrate. She will obtain BMP at [facility] a couple weeks after restarting this medication. -She will work to improve fluid intake and information of low oxalate foods given to patient. -Will f/u in about 6 months for renal US and re-evaluation. Sepsis with acute renal failure without septic s hock Social History Tobacco Use Types Packs/Day Years Used Date Smoking Tobacco: Never Smokeless Tobacco: Never Tobacco Cessation:Counseling Given: Not Answered Alcohol Use Standard Drinks/Week Comments Never 0 (1 standard drink = 0.6 oz pur e alcohol) AUDIT-C Answer Date Recorded Q1: How often do you have a drink containing alc ohol? Monthly or less 02/09/2022 Q2: How many drinks containi ng alcohol do you have on a typical day when you are drinking? 1 or 2 02/09/2022 Q3: How often do you have si x or more drinks on one occasion? 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 Not on file Not on file Not on file Last Filed Vital Signs Vital Sign Reading Time Taken Comments Blood Pressure 160/82 01/13/2024 1:39 PM CDT Pulse 80 02/09/2022 2:11 PM CDT Temperature 36.5 C (97.7 F) 02/09/2022 1:56 PM CDT Respiratory Rate 18 02/09/2022 2:26 PM CDT Oxygen Saturation 96% 02/09/2022 2:26 PM CDT Inhaled Oxygen Concentration - - Weight 98.2 kg (216 lb 9.6 oz) 01/13/2024 1:39 P M CDT Height 160 cm (5' 3 ) 01/13/2024 1:39 PM CDT Body Mass Index 38.37 01/13/2024 1:39 PM CDT Plan of Treatment Not on file Medical Devices Explanted Type Area Certified Teacher Assistant Device Identifier Shelf Expiration Date Model / Serial / Lot [employer] Zhane 180-222 Contour 6fr 24cm Large Inner Lumen Low Profile Bladder Jake Taper Latex Free - [id number] Implanted:Qty: 1 on 06/06/2021 by Juan Morales MD at [facility] Explanted:Qty: 1 on 07/04/2021 at [facility] Left: Ureter [employer]ane 02/21/2024 180-222 / / [id number] [employer] 180-222 Contour 6fr 24cm Large Inner Lumen Low Profile Bladder Jake Taper Latex Free - [id number] Implanted:Qty: 1 on 07/04/2021 by Juan Morales MD at [facility] Explanted:Qty: 1 on 07/11/2021 by Aida Guzman NP Left: Ureter [employer] Zhane 04/18/2024 180-222 / / [id number] Insurance [facility] PLUS [facility] PLUS [facility] CHO[facility] PLUS Care Teams Pharmacist Hospital Relationship Specialty Start Date End Date Bre Mitchell NP PCP - General 06/05/21 Juan Morales MD Consulting Physician Urology 06/07/21
--- OUTSIDE RECORDS SUMMARY | 2024-07-20 06:19 | XMS_ITS | Clinical Summary ---
Author Organization [facility] Virtual Care Address [facility] [place] [address] Phone Care Team Providers Care Modular Set Crew Member Name Role Phone Bre Mitchell NP Primary Care Provider [phone] Juan Morales MD Unavailable [phone] Allergies Active Allergy Reactions Criticality Noted [...] 1 each by mouth daily Thyroid by [employer] and the dose is 3.25 grain Active [...] to do any surgical intervention prior to [place] time so would at least like to [...] acute renal failure without septic s hock Surgical History Surgery Date Site/Laterality Comments SECTION BREAST SURGERY Left cyst removed COLONOSCOPY 04/29/2019 - 04/28/2020 polyp removed benign CYSTOSCOPY INSERTION / REMOVAL STENT / STONE 06/06/2021 stent x2, stents removed 1 week later URETEROSCOPY 07/04/2021 Medical History Medical History Date Comments Obesity Type 2 diabetes mellitus (HCC) N IDDM, oral meds only Urinary tract infection h/o Pyelonephritis GERD (gastroesophageal reflux disease) better since weight loss Hypertension High cholesterol Kidney stones PONV (postoperative nausea and vomiting) Motion sickness Delayed emergence from general anesthesia after surgery 05/2021, pt states likely from sepsis/pain meds, surgery 06/2021 pt had no issues History of sepsis 05/2021 r/t kidney sto ne Depression Social History Tobacco Use Types Packs/Day Years [...] on file 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 Gender Identity Not on file Sexual Orientation Not on file Occupation Industry 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 Not on file Not on file Not on file Obstetrics History Para Term AB IAB SAB Ectopic Multiple Livin g Live Births 2 2 2 2 2 Date Outcome GA Total Labor Labor/2nd/3rd Weight Sex Type Anes PTL Ayanna A1 A5 Name Clin 1996 Term 3.09 kg (6 lb 13 oz) F Vag-S pont Living 2001 Term 3.232 kg (7 lb 2 oz) M CS-Un spec Living Last Filed Vital Signs Vital Sign Reading [...] 01/13/2024 1:39 PM CDT Plan of Treatment Health Maintenance Due Date Last Done Comments Breast Cancer Screening-Mammogram 1964 Cervical Cancer Screening 1964 Colon Cancer Screening-Colonoscopy 1964 Depression Screening 1964 Hepatitis C Screening 1964 DTaP/Tdap/Td Vaccine (1 - Tdap) 1975 Hepatitis B Screening 1982 Zoster Vaccine (1 of 2) 2014 Covid-19 Vaccine (2 - 2023-2 5 season) 2023 07/01/2020 Influenza Vaccine (#1) 2023 Regular Well Visit/Exam 18-64 01/12/2025 01/13/2024 Pneumococcal vaccine <65 Aged Out No longer eligible based on patient's age to complete this topic Medical Devices Explanted Type Area Rn Case Management Device Identifier Shelf Expiration Date Model / Serial / Lot [employer] Zhane 180-222 Contour 6fr 24cm Large Inner Lumen Low Profile Bladder Jake Taper Latex Free - [id number] Implanted:Qty: 1 on 06/06/2021 by Juan Morales MD at [facility] Explanted:Qty: 1 on 07/04/2021 at [facility] Left: Ureter [employer] Zhane 02/21/2024 180-222 / / [id number] [employer]ane 180-222 Contour 6fr 24cm Large Inner Lumen Low Profile Bladder Jake Taper Latex Free - [id number] Implanted:Qty: 1 on 07/04/2021 by Juan Morales MD at [facility] Explanted:Qty: 1 on 07/11/2021 by Aida Guzman NP Left: Ureter [employer] Zhane 04/18/2024 180-222 / / [id number] Insurance [facility]US [facility]PPO Address: [address] [address] [facility]O Address: [address] [address] [place] [address] [facility]US [facility] Address: [address] [address] [place] [address] Care Teams Modular Set Crew Member Relationship Specialty Start Date End Date Bre Mitchell NP PCP - General 06/05/21 Juan Morales MD Consulting Physician Urology 06/07/21
[2024-07-20] MEDS: LACTATED RINGERS 1,000 ML 150 ML IV CONT (06:40)
[2024-07-20 06:48] LABS: Glucose Point of Care 119 mg/dl (65-105)
--- NOTE | 2024-07-20 06:56 | WPDANESEPPF ---
Anes - Initial Pre Proc Eval Procedure: Operation Date: 07/20/24 07:30 Proposed Procedures p Diagnostic Colonoscopy - Shahbaz Leonardo MD Date/Time: 07/20/24 06:56 Surgeon: Shahbaz Leonardo MD Pre Op Diagnosis: Personal HX of Colonic Polyps Patient Data Age: 59 Gender: F Height: 1.6 m Weight: 92.5 kg Allergies Allergy/AdvReac Type Severity Reaction Status Date / Time Sulfa (Sulfonamide Allergy Unknown Other Verified 07/20/24 06:31 Antibiotics) Home Medications ?Medication ?Instructions ?Recorded ?Confirmed ?Type testosterone 30 mg/actuation (1.5 1 pump topical HS 09/06/20 07/16/24 History mL) transderm solution metered pump progesterone micronized 200 mg 500 mg PO HS 06/22/21 07/16/24 History capsule valacyclovir 500 mg tablet 500 mg PO Q12H PRN .cold sores 02/11/23 07/16/24 Rx (Valtrex) #180 tabs cholecalciferol (vitamin D3) 125 250 mcg PO DAILY 06/18/23 07/16/24 History mcg (5,000 unit) capsule omeprazole 40 mg capsule,delayed 40 mg PO DAILY #90 caps 09/16/23 07/16/24 Rx release fluticasone propionate 50 1 spray intranasal DAILY PRN 11/28/23 07/16/24 Rx mcg/actuation nasal allergy symptoms #16 grams spray,suspension (Allergy Relief (fluticasone)) flash glucose sensor (FreeStyle #6 ea 11/29/23 07/16/24 Rx Jt 14 Day Sensor kit) tirzepatide 15 mg/0.5 mL 15 mg (0.5 mL) subcut WEEKLY #6 mL 12/16/23 07/16/24 Rx subcutaneous pen injector (Mounjaro) atorvastatin 40 mg tablet 40 mg PO QHS #90 tabs 01/03/24 07/16/24 Rx fenofibrate 160 mg tablet 160 mg PO DAILY #90 tabs 01/03/24 07/16/24 Rx icosapent ethyl 1 gram capsule 2 g (2 x 1 gram) PO BID #360 caps 01/03/24 07/16/24 Rx (Vascepa) estradiol 1.5 mg tablet 2.7 mg PO DAILY 01/09/24 07/16/24 History thyroid 210 mg PO DAILY 01/09/24 07/16/24 History olmesartan 40 mg tablet 40 mg PO DAILY #90 tabs 03/09/24 07/16/24 Rx empagliflozin 10 mg tablet 10 mg PO QAM #90 tabs 03/10/24 07/16/24 Rx (Jardiance) amlodipine 10 mg tablet 10 mg PO DAILY 07/16/24 07/20/24 History melatonin 3 mg capsule 2 mg PO HS Insomnia 07/16/24 07/20/24 History metformin 500 mg tablet 1,000 mg PO BID 07/16/24 07/20/24 History Laboratory Tests 07/20/24 06:44 POC Capillary Glucose 119 H mg/dl (65-105) Patient hx anesthesia problems: none Family hx anesthesia problems: none Results Review: All pre-operative results and documents have been reviewed as part of the pre-operative evaluation. [facility] Past Medical History Medical History Recurrent herpes labialis History of colon polyps History of renal calculi GERD (gastroesophageal reflux disease) Kidney stones Vaginal delivery x2 Benign breast neoplasm 1984 Post depression 1996 Anxiety and depression Essential (primary) hypertension Hyperlipidemia, unspecified Hypothyroidism, unspecified Type 2 diabetes mellitus without complication Surgical History Surgical History History of cystoscopy (~2020) for renal stones History of wisdom tooth extraction History of tooth extraction (~2021) History of breast surgery (~1984) left breast lump removal Family History Family History Grandparent Family history of emphysema Family history of rheumatic fever Diabetes mellitus Mother Hypertension Family history of coronary artery disease Cerebrovascular accident Father Family history of coronary artery disease Cerebrovascular accident Hyperlipidemia Other Breast cancer Social History Social History Smoking status: Never smoker Alcohol intake: current Alcohol use details: rare Substance use: never Substance use type: does not use Lack of Transportation: No Lack of Food: Never True Current Housing: I Have Housing Concerned About Future Housing: No Difficulty Paying Gas/Electric Bills: No Difficulty Paying for Meds: No Currently Unemployed: No Education: Associate Degree Difficulty w/ Childcare or Family Care: No Living arrangements: with family Spiritual care concerns: No Anes - Eval Final PreProcedure Day of Procedure 07/20/24 06:56 Patient weight: obese Heart: regular rate and rhythm Lungs: clear to auscultation Airway: Mallampati scale class II Neurological: alert and oriented Last oral intake: >/= 8 hours ASA classification: III Emergent: no Anesthetic plan: proceed Anesthesia type and monitoring: general GIVS and standard monitoring Results Review: All pre-operative results and documents have been reviewed as part of the pre-operative evaluation. Informed Consent: The patient's anesthetic plan and its attendant risks and benefits were discussed with the patient/family/POA. Questions were solicited and answers provided to the satisfaction of the patient/family/POA.
--- NOTE | 2024-07-20 07:37 | PM.IMHP ---
H&P: HPI History of Present Illness Date/Time: 07/20/24 07:37 Chief Complaint: History of colon polyps Narrative: The patient has a history of colonic polyps, the last colonoscopy was 3 years ago. The patient had a 1.7 tubulovillous adenoma removed from the rectum. Review of Systems Review of Systems: All systems reviewed & are unremarkable except as noted in HPI and below PMFSH Past Medical History Medical History (Updated 07/20/24 @ 07:39 by Shahbaz Leonardo MD) Recurrent herpes labialis History of colon polyps History of renal calculi GERD (gastroesophageal reflux disease) Kidney stones Vaginal delivery x2 Benign breast neoplasm 1984 Post depression 1996 Anxiety and depression Essential (primary) hypertension Hyperlipidemia, unspecified Hypothyroidism, unspecified Type 2 diabetes mellitus without complication Surgical History Surgical History History of cystoscopy (~2020) for renal stones History of wisdom tooth extraction History of tooth extraction (~2021) History of breast surgery (~1984) left breast lump removal Family History Family History Grandparent Family history of emphysema Family history of rheumatic fever Diabetes mellitus Mother Hypertension Family history of coronary artery disease Cerebrovascular accident Father Family history of coronary artery disease Cerebrovascular accident Hyperlipidemia Other Breast cancer Social History Social History Smoking status: Never smoker Alcohol intake: current Alcohol use details: rare Substance use: never Substance use type: does not use Lack of Transportation: No Lack of Food: Never True Current Housing: I Have Housing Concerned About Future Housing: No Difficulty Paying Gas/Electric Bills: No Difficulty Paying for Meds: No Currently Unemployed: No Education: Associate Degree Difficulty w/ Childcare or Family Care: No Living arrangements: with family Spiritual care concerns: No Meds Home Medications and Allergies Home Medications ?Medication ?Instructions ?Recorded ?Confirmed ?Type testosterone 30 mg/actuation (1.5 1 pump topical HS 09/06/20 07/16/24 History mL) transderm solution metered pump progesterone micronized 200 mg 500 mg PO HS 06/22/21 07/16/24 History capsule valacyclovir 500 mg tablet 500 mg PO Q12H PRN .cold sores 02/11/23 07/16/24 Rx (Valtrex) #180 tabs cholecalciferol (vitamin D3) 125 250 mcg PO DAILY 06/18/23 07/16/24 History mcg (5,000 unit) capsule omeprazole 40 mg capsule,delayed 40 mg PO DAILY #90 caps 09/16/23 07/16/24 Rx release fluticasone propionate 50 1 spray intranasal DAILY PRN 11/28/23 07/16/24 Rx mcg/actuation nasal allergy symptoms #16 grams spray,suspension (Allergy Relief (fluticasone)) flash glucose sensor (FreeStyle #6 ea 11/29/23 07/16/24 Rx Jt 14 Day Sensor kit) tirzepatide 15 mg/0.5 mL 15 mg (0.5 mL) subcut WEEKLY #6 mL 12/16/23 07/16/24 Rx subcutaneous pen injector (Mounjaro) atorvastatin 40 mg tablet 40 mg PO QHS #90 tabs 01/03/24 07/16/24 Rx fenofibrate 160 mg tablet 160 mg PO DAILY #90 tabs 01/03/24 07/16/24 Rx icosapent ethyl 1 gram capsule 2 g (2 x 1 gram) PO BID #360 caps 01/03/24 07/16/24 Rx (Vascepa) estradiol 1.5 mg tablet 2.7 mg PO DAILY 01/09/24 07/16/24 History thyroid 210 mg PO DAILY 01/09/24 07/16/24 History olmesartan 40 mg tablet 40 mg PO DAILY #90 tabs 03/09/24 07/16/24 Rx empagliflozin 10 mg tablet 10 mg PO QAM #90 tabs 03/10/24 07/16/24 Rx (Jardiance) amlodipine 10 mg tablet 10 mg PO DAILY 07/16/24 07/20/24 History melatonin 3 mg capsule 2 mg PO HS Insomnia 07/16/24 07/20/24 History metformin 500 mg tablet 1,000 mg PO BID 07/16/24 07/20/24 History Allergies Allergy/AdvReac Type Severity Reaction Status Date / Time Sulfa (Sulfonamide Allergy Unknown Other Verified 07/20/24 06:31 Antibiotics) Exam Const: General: cooperative and healthy appearing Resp: Effort & Inspection: normal respiratory effort and able to speak in complete sentences Auscultation: clear to auscultation bilaterally Cardio: Rate: regular rate Rhythm: regular rhythm GI: Inspection: normal to inspection GI Palp: No No hepatosplenomegaly present Auscultation: normal bowel sounds Rectal Exam: deferred Skin: General skin exam: normal color Psych: Appearance: grossly normal Mental Status: mental status grossly normal Assessment and Plan Assessment and plan (1) History of colon polyps: Code(s): Z86.010 - Personal history of colon polyps Status: Acute Assessment and Plan: The patient is deemed a good candidate for the procedure. Consent signed. Will proceed.
[2024-07-20 08:01] VITALS: BP 110/63; PULSE 82; RESP 18; O2SAT 95
[2024-07-20 08:11] VITALS: BP 124/68; PULSE 82; RESP 16; O2SAT 98
[2024-07-20 08:21] VITALS: BP 137/79; PULSE 68; RESP 15; O2SAT 98
--- NOTE | 2024-07-20 08:42 | WPDANESPN ---
Anes - Prog Note Post-Op Date/Time: 07/20/24 08:42 Cardiovascular status: normal Respiratory status: normal Airway patency: baseline Mental status: baseline Post-Op hydration status: normal Vital Signs: Last Vital Signs Pulse 68 07/20/24 08:21 Resp 15 07/20/24 08:21 BP 137/79 07/20/24 08:21 Pulse Ox 98 07/20/24 08:21 O2 Del Method Room Air 07/20/24 08:21 Pain Score (VAS): 0/10 I/O: Intake & Output 07/19/24 07/20/24 07/20/24 23:59 07:59 15:59 Intake Total 800 Balance 800 07/20/24 06:44 POC Capillary Glucose 119 H Patient Feedback: Patient satisfied with anesthetic care.
== END 2024-07-20 08:36 | disposition home or self-care (01) ==
PROVIDERS: PCP Family Medicine; Visit Provider Internal Medicine Gastroenterology
PROC: 0DJD8ZZ Inspection of Lower Intestinal Tract, Via Natural or Artificial Opening Endoscopic (ICD-10-PCS; CPT 45378; principal; 2024-07-20 07:30)
DX: Z12.11 Encounter for screening for malignant neoplasm of colon (principal); D12.5 Benign neoplasm of sigmoid colon
CPT/HCPCS: 45385

== ENCOUNTER 2024-07-20 07:00 | Outpatient (NON) | payer OTHER, SELFPAY ==
--- OUTSIDE RECORDS SUMMARY | 2024-07-21 14:23 | XMS_ITS | Clinical Summary ---
Author Organization [facility] [email or web address] Address [address] [address] Care Team Providers Care Employee Benefits Manager Name Role Phone Monse Mitchellh Clarissa BERTRAND-RESIDENTIAL FIELD MANAGER Primary Care Provider Source Comments [facility],non-owned Affiliates and Associated Physician Practices is amultiple site organization consisting of ambulatory clinics and hospital sitesin [place], [place], [place] and [place]. This disclosure is being madepursuant to the Care Everywhere program and may not contain all information available regarding this patient. Last updated 18.[facility] [email or web address] Allergies Active Allergy Reactions Criticality Noted Date [...] Comments Blood Pressure 104/66 03/19/2019 10:57 AM MATERIAL ANALYST Pulse 91 03/19/2019 10:57 AM MATERIAL ANALYST Temperature 36.7 C (98.1 F) 03/19/2019 10:57 AM MATERIAL ANALYST Respiratory Rate 16 03/19/2019 10:57 AM MATERIAL ANALYST Oxygen Saturation 96% 03/19/2019 10:57 AM MATERIAL ANALYST Inhaled Oxygen Concentration - - Weight 113.4 kg (250 lb) 03/19/2019 10:57 AM MATERIAL ANALYST Height 162.6 cm (5' 4 ) 03/19/2019 10:57 AM MATERIAL ANALYST Body Mass Index 42.91 03/19/2019 10:57 AM MATERIAL ANALYST Plan of Treatment Health Maintenance Due Date [...] age to complete this topic Care Teams Employee Benefits Manager Relationship Specialty Start Date End Date Bre Mitchell, PREP MANAGER-RESIDENTIAL FIELD MANAGER [address] [place] [address] PCP - General 11/14/20
--- OUTSIDE RECORDS SUMMARY | 2024-07-21 14:24 | XMS_ITS | Clinical Summary ---
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 Gender Identity Not on file Sexual Orientation [...] this topic Medical Devices Explanted Type Area Drilling Manager Device Identifier Shelf Expiration Date Model / Serial / Lot [employer] Zhane 180-222 Contour 6fr 24cm Large Inner Lumen Low Profile Bladder [employer] Latex Free - [id number] Implanted:Qty: 1 on 06/06/2021 by Juan Morales MD at [facility] Explanted:Qty: 1 on 07/04/2021 at [facility] Left: Ureter [employer] Zhane 02/21/2024 180-222 / / [id number] [employer] Zhane 180-222 Contour 6fr 24cm Large Inner Lumen Low Profile Bladder Jake [employer] Latex Free - [id number] Implanted:Qty: 1 on 07/04/2021 by Juan Morales MD at [facility] Explanted:Qty: 1 on 07/11/2021 by Aida Guzman NP Left: Ureter [employer] Zhane 04/18/2024 180-222 / / [id number] Insurance [facility] CHOICE [facility]US [facility] HMO/PPO Address: [address] [facility] CHOICE [facility] HMO/PPO Address[address] [address] [place] [address] [facility] CHOICE [facility] HMO/PPO Address: [address] [address] [place] [address] Care Teams Directional Drill Operator Relationship Specialty Start Date End Date Bre Mitchell NP PCP - General 06/05/21 Juan Morales MD Consulting Physician Urology 06/07/21
--- OUTSIDE RECORDS SUMMARY | 2024-07-21 14:24 | XMS_ITS | Referral Summary ---
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 Gender Identity Not on file Sexual Orientation [...] on file Medical Devices Explanted Type Area Heel Turner Device Identifier Shelf Expiration Date Model / Serial / Lot [employer] Zhane 180-222 Contour 6fr 24cm Large Inner Lumen Low Profile Bladder [employer] Latex Free - [id number] Implanted:Qty: 1 on 06/06/2021 by Juan Morales MD at [facility] Explanted:Qty: 1 on 07/04/2021 at [facility] Left: Ureter [employer] Zhane 02/21/2024 180-222 / / [id number] [employer] Zhane 180-222 Contour 6fr 24cm Large Inner Lumen Low Profile Bladder [employer] Latex Free - [id number] Implanted:Qty: 1 on 07/04/2021 by Juan Morales MD at [facility] Explanted:Qty: 1 on 07/11/2021 by Aida Guzman NP Left: Ureter [employer] Zhane 04/18/2024 180-222 / / [id number] Insurance [facility] CHO[facility] PLUS [facility] PLUS [facility] CHO[facility] PLUS Care Teams Fiber Picker Relationship Specialty Start Date End Date Bre Mitchell NP PCP - General 06/05/21 Juan Morales MD Consulting Physician Urology 06/07/21
== END 2024-07-20 07:01 | disposition home or self-care (01) ==
LOC: ANHLAB 07-21 12:31
PROVIDERS: PCP Family Medicine; Visit Provider Internal Medicine Gastroenterology
DX: D12.5 Benign neoplasm of sigmoid colon (principal); Z86.0100 Personal history of colon polyps, unspecified
CPT/HCPCS: 88305

== ENCOUNTER 2024-10-22 14:23 | Outpatient (CLI) | payer OTHER, SELFPAY ==
--- NOTE | ~2024-10-22 | MM_ITS ---
EXAMINATION: MM screening [facility] BI w liliana HISTORY: Screening mammogram TECHNIQUE: Craniocaudal and mediolateral oblique 3-D tomosynthesis images were obtained and synthetic 2-D images were generated. CAD analysis was submitted and interpreted. COMPARISON: 10/21/2023, 09/01/2022, 08/31/2021, 05/23/2020 BREAST PARENCHYMAL COMPOSITION:Not Dense. The breasts are almost entirely fatty FINDINGS: No suspicious mass, calcification, or architectural distortion are identified in either ramy ast to suggest malignancy. There has been no suspicious interval change. IMPRESSION: No mammographic evidence of malignancy. Recommend routine screening mammography in one year. BI-RADS Category 1: Negative Reviewed, dictated and finalized at location .
== END 2024-10-22 14:24 | disposition home or self-care (01) ==
PROVIDERS: PCP Obstetrics & Gynecology Gynecology; Visit Provider Family Medicine
DX: Z12.31 Encounter for screening mammogram for malignant neoplasm of breast (principal)
CPT/HCPCS: 77063; 77067